=== PATIENT | male | born 1990 | race American Indian/Alaskan Native ===

== ENCOUNTER 2020-08-07 15:26 | Emergency (ER) | payer MEDICAID ==
[~2020-08-07] VITALS: Ht 172.7 cm; Wt 103.0 kg
--- NOTE | 2020-08-07 15:32 | NUR ---
PATIENT WAS MSE BY DR SUTTON IN ROOM 05A.
--- NOTE | 2020-08-07 15:54 | NUR ---
PATIENT WAS ABLE TO VOID 200ML POST DC FC. NO BLEEDING NO DISCHARGE NO PAIN .
[2020-08-07 15:56] VITALS: BP 129/75
--- NOTE | 2020-08-07 15:56 | NUR ---
Patient discharged to home in stable condition. Written and verbal after care instructions given. Patient verbalizes understanding of instructions. Stressed follow up or return to ER for worsening s/s.
== END 2020-08-07 15:57 | disposition home or self-care (01) ==
LOC: ER 15:40
DX: Z43.6 Encounter for attention to other artificial openings of urinary tract (principal); R33.9 Retention of urine, unspecified
CPT/HCPCS: A4663